=== PATIENT | male | born 1995 | race Caucasian/White ===

== ENCOUNTER 2022-09-13 19:17 | Emergency (ER) | payer SELFPAY ==
[2022-09-13] MEDS ORDERED: Ketorolac Tromethamine 30 MG/ML VIAL ONE (20:24)
== END 2022-09-13 21:32 | disposition home or self-care (01) ==
LOC: CSHERS 19:17
DX: S42.032A Displaced fracture of lateral end of left clavicle, initial encounter for closed fracture (principal); F17.290 Nicotine dependence, other tobacco product, uncomplicated; W18.30XA Fall on same level, unspecified, initial encounter
CPT/HCPCS: 96372; J1885